=== PATIENT | male | born 1965 | race Caucasian/White ===

== ENCOUNTER 2017-08-26 08:30 | Day surgery (SDC) | payer BC ==
[2017-08-26] MEDS ORDERED: LIDOCAINE 1% MDV (10MG/ML) 20ML VIAL SQ ONE (08:31)
[2017-08-26] MEDS ORDERED: PROPOFOL 10 MG/ML VIAL IV ONE (08:31)
--- NOTE | 2017-08-29 16:30 | Operative Note ---
DATE OF SURGERY: 08/26/2017 Surgeon: Wilfredo Decker DO Referring physician: Re Bahena MD OPERATION: COLONOSCOPY TO THE CECUM INDICATION: Prior history of adenomatous polyps. His last examination was 3 years ago by my associate, Dr. Plascencia. A repeat colonoscopy is performed at this time for surveillance. The patient denies any new problems or complaints. Anesthesia: Intravenous sedation was administered by the Department of Anesthesiology and included Diprivan titrated to effect. PROCEDURE: Following informed consent from this alert individual, including a discussion of the risks and benefits of the procedure and an opportunity for the patient to ask questions, the patient was in the left lateral decubitus position. Digital rectal examination was performed. No abnormalities were noted. Following this, the Olympus PCF 180 Video Colonoscope was inserted in the rectum without resistance. The rectal mucosa had a normal appearance with normal folds and distensibility. The colonoscope was advanced up through the colon to the level of the cecum without much difficulty. Throughout the bowel, the mucosa appeared normal, folds were normal. The bowel was filled with distensible. The cecum was defined by noting the appendiceal orifice and the ileocecal valve. Retroflexion accomplished in the cecum, failed to demonstrate any abnormalities. Colon preparation was good. There was some retained liquid noted, which was suctioned through the endoscope into a collection trap. From the base of the cecum, the colonoscope was then withdrawn back through the bowel, re-examined the mucosa upon withdrawal. No abnormalities were detected. Retroflexion in the rectum likewise was endoscopically normal. The endoscope was straightened and removed. The patient tolerated the procedure well and was returned to the recovery area in stable condition. IMPRESSION: Unremarkable colonoscopy to the cecum. RECOMMENDATIONS: Because of the patient's previous history of adenomatous polyps, I did recommend a recheck examination in 5 years' time or sooner if problems arise. Followup will also be with Dr. Bahena. As always, thank you for allowing me to participate in the care of your patient. CC: MD Wilfredo Nogueira DO [facility]
== END 2017-08-26 10:47 | disposition home or self-care (01) ==
LOC: HOP 08:30
PROVIDERS: ATTEND Internal Medicine Gastroenterology
DX: Z12.11 Encounter for screening for malignant neoplasm of colon (principal); Z86.010 Personal history of colon polyps; I10 Essential (primary) hypertension
CPT/HCPCS: 00812; G0105

== ENCOUNTER 2017-10-28 18:46 | Emergency (ER) | payer BC ==
--- NOTE | 2017-10-28 18:55 | Emergency Department Record ---
History of Present Illness - General Chief Complaint: Knee injury Stated Complaint: LT KNEE BUCKLED Time Seen by Provider: 10/28/17 18:49 Source: Patient Mode of Arrival: Wheelchair Limitations: No limitations - History of Present Illness Initial Comments: 52 yo male presents to ED for evaluation following injury to the left knee while cleaning a bathroom [employer]PT[employer]. Patient denies other injury on examination, and reports pain but FROM of the affected knee. Patient reports numerous previous surgeries to the knee (9), has seen Dr. John previously for several surgeries. Patient denies dislocation of the knee or deformity prior to arrival. Patient reports "its just sore", denies the need for analgesia on examination. MD Complaint: Knee injury Onset/Timin -: Minutes(s) Injury: Knee: Left Type of Injury: Blunt Place: Work Severity: Moderate Improves With: Immobilization Worsens With: Weight bearing Context: Direct blow, Fall Associated Symptoms: Able to partially bear weight - Related Data Home Medications Medication Instructions Recorded Confirmed Last Taken Alprazolam [Xanax] 0.25 mg PO Q8H 10/28/17 10/28/17 Unknown Losartan Potassium 25 mg PO DAILY 10/28/17 10/28/17 Unknown Venlafaxine HCl [Effexor] 150 mg PO DAILY 10/28/17 10/28/17 Unknown Zolpidem Tartrate [Ambien] 5 mg PO ASDIR 10/28/17 10/28/17 Unknown Allergies Allergy/AdvReac Type Severity Reaction Status Date / Time Sulfa (Sulfonamide Allergy HIVES Verified 10/28/17 18:48 Antibiotics) Review of Systems Constitutional: Denies: Chills, Fever, Malaise, Night sweats Eyes: Denies: Eye discharge, Eye pain ENT: Denies: Congestion, Ear pain, Epistaxis Respiratory: Denies: Cough, Dyspnea Cardiovascular: Denies: Chest pain, Dyspnea on exertion Endocrine: Denies: Fatigue, Heat or cold intolerance Gastrointestinal: Denies: Abdominal pain, Nausea, Vomiting Genitourinary: Denies: Incontinence, Retention Musculoskeletal: Reports: Arthralgia. Denies: Back pain, Gout, Joint swelling Skin: Denies: Bruising, Change in color Neurological: Denies: Abnormal gait, Confusion, Headache Psychiatric: Denies: Anxiety Hematological/Lymphatic: Denies: Anemia, Blood Clots Past Medical History - SOCIAL HISTORY Smoking Status: Former smoker Alcohol Use: None Drug Use: None - RESPIRATORY Hx Respiratory Disorders: No - CARDIOVASCULAR Hx Cardio Disorders: Yes Hx Hypertension: Yes - NEURO Hx Neuro Disorders: Yes Hx of Migraines: Yes - GI Hx GI Disorders: Yes Hx of Polyps: Yes - Hx Genitourinary Disorders: No - ENDOCRINE Hx Endocrine Disorders: No - MUSCULOSKELETAL Hx Musculoskeletal Disorders: Yes Hx Arthritis: Yes (shoulders, right knee) - PSYCH Hx Psych Problems: Yes Hx Anxiety: Yes Hx Depression: Yes - HEMATOLOGY/ONCOLOGY Hx Hematology/Oncology Disorders: No Family Medical History Any Significant Family History?: Yes Hx Dementia: Grandparents Hx Diabetes: Grandparents Hx Heart Disease: Father, Grandparents Hx HTN: Father, Grandparents Hx Resp Disorders: Father Physical Exam - General General Appearance: Alert, Oriented x3, Cooperative, Mild distress Limitations: No limitations - Head Head exam: Atraumatic, Normocephalic, Normal inspection Head exam detail: negative: Abrasion, Contusion, Bunn's sign, General tenderness, Hematoma, Laceration - Eye Eye exam: Normal appearance. negative: Conjunctival injection, Periorbital swelling, Periorbital tenderness, Scleral icterus - ENT Ear exam: negative: Auricular hematoma, Auricular trauma Nasal Exam: negative: Active bleeding, Discharge, Dried blood, Foreign body Mouth exam: negative: Drooling, Laceration, Muffled voice, Tongue elevation - Neck Neck exam: Normal inspection. negative: Meningismus, Tenderness - Respiratory Respiratory exam: Normal lung sounds bilaterally. negative: Respiratory distress, Rhonchi, Stridor, Wheezes - Cardiovascular Cardiovascular Exam: Regular rate, Normal rhythm, Normal heart sounds - GI/Abdominal GI/Abdominal exam: Soft. negative: Distended, Rebound, Rigid, Tenderness - Rectal Rectal exam: Deferred - exam: Deferred - Extremities Extremities exam: Tenderness, Other (TTP to the suprapatellar region of the knee , no effusion is present, anterior/posterior drawer tests are negative on examination. Strength 5/5 distal foot dorsiflexion.). negative: Calf tenderness, Pedal edema - Back Back exam: Denies: CVA tenderness (R), CVA tenderness (L) - Neurological Neurological exam: Alert, Normal gait, Oriented X3 - Psychiatric Psychiatric exam: Normal affect, Normal mood - Skin Skin exam: Normal color. negative: Abrasion Type of lesion: negative: abrasion Course - Reevaluation(s) Reevaluation #1: 10/28/17 20:37 Left knee: TKA without evidence for fracture or acute traumatic injury. Patient was updated on his result, will place in knee immobilizer and arrange follow-up with Dr. Ricketts as Dr. John has left town. Patient agrees with the plan of care as discussed and appears stable for discharge at this time. Disposition Disposition: Discharge Clinical Impression: Strain of knee and leg, left Qualifiers: Encounter type: initial encounter Qualified Code(s): S86.912A - Strain of unspecified muscle(s) and tendon(s) at lower leg level, left leg, initial encounter Disposition: Home, Self-Care Condition: (2) Stable Instructions: Knee Pain (ED) Additional Instructions: Return to ED if your symptoms worsen or if you have any concerns. Follow-up with your Dr. John in 3-5 days as directed. Referrals: DICK RICKETTS [DOCTOR OF OSTEOPATH] - [facility] Special[facility] [Provider Group] Forms: Patient Portal Access Time of Disposition: 20:39 Quality - Quality Measures Quality Measures: N/A - Blood Pressure Screening Does Patient Have Any of the Following: No Blood Pressure Classification: Hypertensive Reading Systolic Measurement: 148 Diastolic Measurement: 96 Screening for High Blood Pressure: < First Hypertensive BP, F/U Documented > [ G8950] First Hypertensive Follow-up Interventions: Referral to alternative/primary care provider.
--- NOTE | 2017-10-31 08:43 | RADIOLOGY REPORT ---
EXAM: LEFT KNEE HISTORY: PAIN. TECHNIQUE: Four views of the left knee were performed. FINDINGS: The patient is status post left knee arthroplasty. No complicating process. No joint effusion. IMPRESSION: STATUS POST LEFT KNEE ARTHROPLASTY. NO COMPLICATING PROCESS. JOB NUMBER: [id number] MTDD
== END 2017-10-28 20:56 | disposition home or self-care (01) ==
LOC: ER 18:46
DX: S86.912A Strain of unspecified muscle(s) and tendon(s) at lower leg level, left leg, initial encounter (principal); X50.0XXA Overexertion from strenuous movement or load, initial encounter; Y93.E5 Activity, floor mopping and cleaning; Y92.238 Other place in hospital as the place of occurrence of the external cause; Y99.0 Civilian activity done for income or pay; I10 Essential (primary) hypertension; Z87.891 Personal history of nicotine dependence; Z96.651 Presence of right artificial knee joint
CPT/HCPCS: 99283; 99284

== ENCOUNTER 2018-01-29 15:26 | Emergency (ER) | payer BC, OTHER ==
--- NOTE | 2018-01-29 15:52 | Emergency Department Record ---
History of Present Illness - General Chief complaint: Extremity Problem Stated complaint: EVAL TO RELEASE TO WORK Time Seen by Provider: 01/29/18 15:42 Source: Patient Mode of Arrival: Ambulatory Limitations: No limitations - History of Present Illness Initial comments: The patient is here due to a slip and fall at work 3 nights ago. 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 He then fell backwards and landed on his low back and his R hand which was outstretched backwards. Since he has had mild low back pain and R hand mild pain and stiffness. There is no leg numbness, weakness, or difficulty walking. He also denies any wrist pain or swelling. MD Complaint: Extremity pain, Other Onset/Timin -: Days(s) Location: Right, Hand Severity scale (1-10): 5 Consistency: Intermittent Improves with: Immobilization Worsens with: Exertion Associated Symptoms: Denies other symptoms - Related Data Allergies Allergy/AdvReac Type Severity Reaction Status Date / Time Sulfa (Sulfonamide Allergy HIVES Verified 01/29/18 15:29 Antibiotics) Travel Screening - Travel/Exposure Within Last 30 Days Have you traveled within the last 30 days?: No - Travel/Exposure Within Last Year Have you traveled outside the [place] in the last year?: No - Additonal Travel Details Have you been exposed to anyone with a communicable illness?: No - Travel Symptoms Symptom Screening: None Review of Systems Constitutional: Denies: Chills, Fever Eyes: Denies: Eye discharge ENT: Denies: Congestion Respiratory: Denies: Cough, Dyspnea Past Medical History - SOCIAL HISTORY Smoking Status: Former smoker Alcohol Use: None Drug Use: None - RESPIRATORY Hx Respiratory Disorders: No - CARDIOVASCULAR Hx Cardio Disorders: Yes Hx Hypertension: Yes - NEURO Hx Neuro Disorders: Yes Hx of Migraines: Yes - GI Hx GI Disorders: Yes Hx of Polyps: Yes - Hx Genitourinary Disorders: No - ENDOCRINE Hx Endocrine Disorders: No - MUSCULOSKELETAL Hx Musculoskeletal Disorders: Yes Hx Arthritis: Yes (shoulders, right knee) - PSYCH Hx Psych Problems: Yes Hx Anxiety: Yes Hx Depression: Yes - HEMATOLOGY/ONCOLOGY Hx Hematology/Oncology Disorders: No Family Medical History Any Significant Family History?: Yes Hx Dementia: Grandparents Hx Diabetes: Grandparents Hx Heart Disease: Father, Grandparents Hx HTN: Father, Grandparents Hx Resp Disorders: Father Physical Exam - General General Appearance: Alert, Oriented x3, Cooperative, No acute distress - Head Head exam: Atraumatic, Normocephalic, Normal inspection - Eye Eye exam: Normal appearance, PERRL - Neck Neck exam: Normal inspection, Full ROM. negative: Tenderness - Respiratory Respiratory exam: Normal lung sounds bilaterally. negative: Respiratory distress - Cardiovascular Cardiovascular Exam: Regular rate, Normal rhythm, Normal heart sounds - GI/Abdominal GI/Abdominal exam: Soft, Normal bowel sounds. negative: Tenderness - Extremities Extremities exam: Normal inspection (The R hand has no swelling or bruising appreciated.), Full ROM (There is full ROM with mild stiffness on full hand flexion and grasping. ), Normal capillary refill, Tenderness (There is mild tenderness over the 2nd - 5th MCP joint area dorsally. ), Other (There is no R wrist tenderness. ). negative: Joint swelling - Back Back exam: Reports: Normal inspection, Paraspinal tenderness, Vertebral tenderness, Other (There is very minor L3-5 spinal and paraspinal tenderness to palpation.) - Neurological Neurological exam: Alert, Normal gait, Oriented X3, Reflexes normal (The patellar reflexes are trace bilaterally.). negative: Abnormal gait, Altered, Motor sensory deficit - Psychiatric Psychiatric exam: negative: Anxious Course Vital Signs 01/29/18 15:31 Temperature 98.3 F Pulse Rate 101 H Respiratory 18 Rate Blood Pressure 126/89 Pulse Ox 96 - Reevaluation(s) Reevaluation #1: The patient is doing well at this time. He is ambulating normally and has good ROM of his R hand. I did ask the patient if he is able to go back to work and he does feel he is able to do his regular job duties. 01/29/18 16:31 Medical Decision Making - Data Complexity MDM Data: X-Ray Ordered and/or Reviewed - Radiology Data Radiology results: Report reviewed (R hand and Lumbar spine: Neg per Rad.) Disposition Disposition: Discharge Clinical Impression: Strain of hand, right Qualifiers: Encounter type: initial encounter Qualified Code(s): S66.911A - Strain of unspecified muscle, fascia and tendon at wrist and hand level, right hand, initial encounter Disposition: Home, Self-Care Condition: (2) Stable Instructions: Hand Sprain (ED) Additional Instructions: Please use Tylenol for pain and return to the ER for any worsening symptoms. Forms: Patient Portal Access Time of Disposition: 16:29 Quality - Quality Measures Quality Measures: N/A - Blood Pressure Screening View Details: Yes Does Patient Have Any of the Following: No Blood Pressure Classification: Pre-Hypertensive BP Reading Systolic Measurement: 126 Diastolic Measurement: 89 Screening for High Blood Pressure: < Pre-Hypertensive BP, F/U Documented > [ G8950] Pre-Hypertensive Follow-up Interventions: Referral to alternative/primary care provider.
[2018-01-29 16:29] LABS: AMPHETAMINE SCREEN URINE NOT DETECTED; BARBITURATE SCREEN URINE NOT DETECTED; BENZODIAZEPINE SCREEN URINE NOT DETECTED; COCAINE SCREEN URINE NOT DETECTED; METHADONE SCREEN URINE NOT DETECTED; METHAMPHETAMINE SCREEN NOT DETECTED; OPIATE SCREEN URINE NOT DETECTED; OXYCODONE SCREEN URINE NOT DETECTED; PHENCYCLIDINE SCREEN URINE NOT DETECTED; PROPOXYPHENE SCREEN URINE NOT DETECTED; THC SCREEN URINE NOT DETECTED; TRICYCLIC ANTIDEPRESSANT SCRN NOT DETECTED
--- NOTE | 2018-01-31 09:23 | RADIOLOGY REPORT ---
EXAM: RIGHT HAND HISTORY: INJURY. TECHNIQUE: Three views of the right hand were performed. FINDINGS: No evidence of fracture or dislocation. No lytic or blastic lesion. No radiopaque foreign body. IMPRESSION: NEGATIVE RIGHT HAND EXAMINATION. JOB NUMBER: [id number] MTDD
--- NOTE | 2018-01-31 09:25 | RADIOLOGY REPORT ---
EXAM: LUMBAR SPINE HISTORY: FALL. TECHNIQUE: AP and lateral views of the lumbar spine were performed. FINDINGS: There is normal vertebral body height and alignment. No evidence of acute fracture, spondylolysis or spondylolisthesis. The sacroiliac joints appear normal. IMPRESSION: NEGATIVE LUMBOSACRAL SPINE EXAMINATION. JOB NUMBER: [id number] MTDD
== END 2018-01-29 16:33 | disposition home or self-care (01) ==
LOC: ER 15:26
DX: S66.911A Strain of unspecified muscle, fascia and tendon at wrist and hand level, right hand, initial encounter (principal); W01.0XXA Fall on same level from slipping, tripping and stumbling without subsequent striking against object, initial encounter; Y92.238 Other place in hospital as the place of occurrence of the external cause; Y99.0 Civilian activity done for income or pay; I10 Essential (primary) hypertension; Z87.891 Personal history of nicotine dependence
CPT/HCPCS: 99283 ×2; 80305 ×10; 73130; 72100; G0477 ×2